=== PATIENT | male | born 1970 | race Caucasian/White ===

== ENCOUNTER 2022-09-23 16:47 | Emergency (ER) | payer OTHER, SELFPAY ==
[2022-09-23] VITALS (7 sets, daily range): BP systolic 102–127; BP diastolic 68–96; PULSE 72–86; RESP 15–26; TEMP 36.8–36.9; O2SAT 94–98; BMI 32.3
--- NOTE | 2022-09-23 16:56 | CT_ITS ---
STUDY: CT CHEST, ABDOMEN T PELVIS WITH CONTRAST REASON FOR EXAM: Male, 52 years old. abdominal pain RADIATION DOSAGE (If Supplied By Facility): CTDIvol = ( 21.50 ) mGy, DLP = ( 2205.44 ) mGycm TECHNIQUE: Transaxial imaging was performed following intravenous administration of IV 100mL Isovue-300. Individualized dose optimization techniques were used for this CT. COMPARISON: No relevant priors. FINDINGS: CHEST Mild reticulonodular interstitial thickening in both left upper and lower lobes possibly inflammatory. There is no demonstrated pleural abnormality. Normal heart and pericardium. Mild coronary artery calcification Normal mediastinum. Normal hilar regions. Normal unenhanced pulmonary arteries. Normal aorta arch and descending thoracic aorta. Dorsal spine demonstrates mild degenerative changes . ABDOMEN Small hiatal hernia is noted. Normal liver. Gallbladder not visualized status post cholecystectomy. Normal spleen. Diffusely fatty infiltrated pancreas.. Normal bilateral adrenal glands. Normal right kidney. Normal left kidney. Normal visualized stomach. Normal small intestine. Minor diverticular changes of the colon without evidence for acute diverticulitis. No evidence for acute appendicitis. Tiny pericecal nodes likely benign Minor atherosclerotic change of the aorta without evidence for aneurysm. Normal inferior vena cava. Normal retroperitoneum. Normal abdominal wall. Normal osseous structures. PELVIS Normal urinary bladder. Normal visualized small intestine. Normal visualized colon. There is no pelvic fluid. There is no pelvic lymphadenopathy or mass lesion. Normal visualized pelvic arteries. Multiple small bilateral inguinal nodes of uncertain significance. Mild stranding in the fat of the right inguinal region possibly due to prior surgery or inflammatory disease. Lumbar spine demonstrates mild spondylosis. CT/CT Chest, Abd, Pel w/Contrast IMPRESSION: Mild reticulonodular interstitial thickening in the left upper and lower lobes possibly inflammatory.. Postop change status post cholecystectomy Minor diverticular changes of the colon without evidence for acute diverticulitis. No evidence for small bowel obstruction or other acute abnormality Electronically Signed: Adarsh Chinchilla MD at 19:09 [facility] ,
--- NOTE | 2022-09-23 16:59 | ED.VIS.CHEST ---
HPI History of Present Illness Chief Complaint: Chest Pain Detail of Chief Complaint: Chest pain Informant: patient Narrative Narrative: Patient presents the emergency department complaint of chest discomfort that started around 3:15 PM. Patient states that he was just at rest sitting when he developed a pressure in the upper abdomen and across his chest that lasted about an hour. Patient attempted to make himself vomit however he did not vomit. He tells me that several days ago he had a similar episode where he had some pressure in his abdomen and he vomited 1 time and then that relieve the pressure and he felt better. Patient has complicated recent history of admission to [facility] for a hiatal hernia surgery and polyp surgery that he then subsequently developed massive pulmonary emboli that required thrombectomy and patient was placed on ECMO. Patient's been home since August 30. He has been eating and drinking normally. He has not had any blood in the stool. Patient currently states his pain is completely resolved. Patient was worried about his heart. Patient is currently taking Xarelto. Patient states that he did feel very weak and shaky and somewhat lightheaded when this was happening. [facility] Medical History (Updated 09/23/22 @ 19:[address] Maria Mayes, ) Anxiety Pulmonary embolism Home Medications rivaroxaban 20 mg tablet (Xarelto) 20 mg PO DAILY 09/23/22 [History Last Taken Unknown] Allergy/AdvReac Type Severity Reaction Status Date / Time Penicillins [PCN] Allergy Rash Verified 09/23/22 17:03 Sulfa (Sulfonamide Allergy Anaphylaxis Verified 09/23/22 17:03 Antibiotics) [sulfa drugs] Surgical History Hx of cholecystectomy Social History Smoking Status: Never smoker ROS ROS ED Review of Systems ROS Unobtainable: other Constitutional Constitutional ED: Reports lethargy; Denies chills, fever(s), sweats or weight loss Eyes Eyes: Denies blurry vision, change in vision or diplopia ENT ENT ED: Denies rhinorrhea or sore throat Cardiovascular Cardiovascular: Reports chest pain and racing heartbeat; Denies orthopnea Respiratory/Chest Respiratory/Chest: Reports dyspnea; Denies cough, dyspnea on exertion, orthopnea or sputum Gastrointestinal Gastrointestinal: Reports abdominal pain; Denies diarrhea, nausea or vomiting Genitourinary Genitourinary ED: Denies dysuria, hematuria or urinary frequency Musculoskeletal Musculoskeletal: Denies arthralgias, back pain, myalgias or neck pain Integumentary Denies abscess, Abrasions or rash Neurologic Neurologic: Reports weakness; Denies headache(s) Psychiatric Psychiatric: Denies anxiety, depression or suicidal thoughts Endocrine Endocrinology: Denies polydipsia, polyphagia or polyuria Hematologic/Lymphatic Hematologic/Lymphatic: Denies easy bleeding, easy bruising or lymphadenopathy Allergic/Immunologic Allergic/Immunologic ED: Denies mouth swelling, tongue swelling or urticaria EXAM Physical Exam Const Vital Signs: 09/23/22 16:49 09/23/22 17:03 09/23/22 17:04 Temperature 98.3 F Temperature Source Oral Pulse Rate 86 Respiratory Rate 20 H Respiratory Effort Normal Non-Labored Blood Pressure 127/96 H Blood Pressure Mean 106 Pulse Ox 98 95 Oxygen Delivery Method Room Air Room Air 09/23/22 17:05 09/23/22 18:06 09/23/22 19:04 Temperature 98.3 F Temperature Source Oral Pulse Rate 86 81 84 Respiratory Rate 18 15 26 H Respiratory Effort Blood Pressure 127/89 H 102/81 H 111/84 H Blood Pressure Mean 101 88 93 Pulse Ox 96 94 97 Oxygen Delivery Method Room Air Room Air Room Air 09/23/22 19:33 Temperature 98.4 F Temperature Source Oral Pulse Rate 74 Respiratory Rate 17 Respiratory Effort Blood Pressure 103/79 Blood Pressure Mean 87 Pulse Ox 94 Oxygen Delivery Method Room Air Positive well nourished and well developed General Appearance ED: well developed and NAD HEENT Reports TM's clear and moist mucous membranes normocephalic and atraumatic; Negative for trauma or tenderness Tympanic Membrane ED: Yes TM's clear Eyes PERRL and EOMs intact bilaterally General Eye ED: Negative for pale conjunctiva or scleral icterus Neck no lymphadenopathy, supple and no JVD General: Negative for tenderness Chest Wall inspection of chest normal and palpation of chest normal Chest: Negative for tenderness Resp normal respiratory effort and clear to auscultation bilaterally Effort and Inspection: Negative for respiratory distress or pain with movement Auscultation: Negative for rhonchi, wheezes or diminished lung sounds Cardio regular rate, regular rhythm, S1 normal heart sound, S2 normal heart sound and no murmurs Peripheral Pulses: pulses 2+ throughout GI normal to inspection, nondistended, normoactive bowel sounds, soft to palpation, non-distended and no masses GI Narrative: Mild epigastric tenderness on exam. There is no rebound, rigidity, or peritoneal signs. No mass palpated. Back/Spine no CVA tenderness and no thoracic nor lumbar tenderness Extremity normal to inspection General Extremety ED: Negative for edema General Extremity: Negative for edema Neuro oriented x3, CN's II-XII intact bilaterally, no sensory deficits noted and gait normal Sensorium / Orientation: awake, alert, oriented to person, oriented to place and oriented to time Motor Exam: strength 5/5 throughout and strength abnormal Psych mental status grossly normal Skin no rashes or lesions noted and no wounds Heart Score History: Moderately Suspicious ECG: Normal Age: >45 - <65 years Risk Factors: No Risk Factors Troponin: </= Normal Limit Score: 2 MDM MDM MDM Narrative Medical decision making narrative: Presents with chest and abdomen pain. In the differential would be cardiac etiology versus small bowel obstruction versus complication from prior esophageal hernia surgery. Patient had an IV line established and was placed on a engine monitor. EKG obtained on arrival shows sinus rhythm with a ventricular rate of 84 bpm with occasional PACs. CBC with differential was normal. Hemoglobin was 12.8. Platelet count 219. Chemistries unremarkable. Lipase was normal at 44. Troponin was normal at 7. Patient had a CT scan of the chest and abdomen with IV contrast that showed mild reticulonodular interstitial thickening of the left upper and lower lobes possibly inflammatory. Patient had postop changes status post cholecystectomy. Patient has not had minor diverticular changes of the colon without evidence for acute diverticulitis and there was no evidence of bowel obstruction. Patient had a delta troponin that also was normal. Patient received morphine and Zofran initially and he had some relief with that patient also was given simethicone which really seem to help his pain as he states that he was constantly belching and then that would relieve his pressure and his symptoms would resolve but then they would come back. Based on his symptomatology I suspect this is likely related to GI etiology and may be gas. There is no evidence of bowel obstruction or postop complications. I feel patient can be safely discharged to home and he is comfortable with plan. He does not need anything for pain for home or nausea. Lab Data Attestation: I reviewed the patient's lab results. Labs: Laboratory Results - last 24 hr 09/23/22 09/23/22 09/23/22 16:31 16:31 19:13 WBC 7.0 RBC 4.49 L Hgb 12.8 L Hct 39.7 L MCV 88.4 MCH 28.5 MCHC 32.2 RDW Std Deviation 44.4 H RDW Coeff of Charley 13.6 Plt Count 219 MPV 10.7 Immature Gran % (Auto) 0.300 Neut % (Auto) 48.6 Lymph % (Auto) 39.1 [place] % (Auto) 7.4 Eos % (Auto) 4.0 Baso % (Auto) 0.6 Absolute Neuts (auto) 3.4 Absolute Lymphs (auto) 2.73 Nucleated RBC % 0 Sodium 140 Potassium 3.5 Chloride 108 H Carbon Dioxide 27.0 Anion Gap 5 BUN 18 Creatinine 1.01 Est GFR (MDRD) Af Amer 100 Est GFR (MDRD) Non-Af 83 BUN/Creatinine Ratio 17.8 Glucose 118 H Calcium 9.4 Troponin I High Sens 7 6 Lipase 44 L Radiography Diagnostic Testing: Clinical Impression(s) from Imaging Studies Chest/Abdomen/Pelvis CT 09/23/22 16:56 IMPRESSION: Mild reticulonodular interstitial thickening in the left upper and lower lobes possibly inflammatory.. Postop change status post cholecystectomy Minor diverticular changes of the colon without evidence for acute diverticulitis. No evidence for small bowel obstruction or other acute abnormality Electronically Signed: Adarsh Chinchilla MD at 19:09 EST , Chest X-Ray 09/23/22 17:12 IMPRESSION: No acute cardiopulmonary pathology. Electronically Signed: Adarsh Chinchilla MD at 17:38 EST , EKG Initial EKG: Attestation: I personally reviewed and interpreted this EKG as follows: Comments: Sinus rhythm with a ventricular rate of 84 bpm with occasional PACs. Discharge Plan Triage Chief Complaint: Chest Pain ED Provider: Maria Mayes Dx/Rx/DC Orders Clinical Impression: Chest pain, Abdominal pain Instructions: ED Abdominal Pain Unkn Cause Fem, ED Chest Pain, Uncertain Cause Prescriptions: No Action Xarelto 20 mg Tablet 20 mg PO DAILY Rx Instructions: must administer with evening meal Primary Care Provider: Rajinder Romo Referrals: Rajinder Romo MD [Primary Care Provider] - 3-5 Days Disposition Disposition: Home, Self Care
--- NOTE | 2022-09-23 17:00 | EKG12_ITS ---
Test Reason : Blood Pressure : / mmHG Vent. Rate : 084 BPM Atrial Rate : 084 BPM P-R Int : 176 ms QRS Dur : 090 ms QT Int : 376 ms P-R-T Axes : 018 -13 010 degrees QTc Int : 444 ms Normal sinus rhythm with sinus arrhythmia Normal ECG Confirmed by JONATHAN HENDERSON, SAROJ ([id number]), order editor ANNE JUAREZ ([id number]) on 09/27/2022 11:21:36 AM Referred By: CHRIS Confirmed By:SAROJ CASTILLO MD
[2022-09-23] MEDS: 0.9% Normal Saline 1,000 ML 150 ML IV (17:12)
--- NOTE | 2022-09-23 17:12 | RAD_ITS ---
STUDY: X-RAY CHEST REASON FOR EXAM: Male, 52 years old. chest pain TECHNIQUE: AP portable COMPARISON: None. FINDINGS: There is a linear scarring in the left lower lobe. There is no focal infiltration. There is no demonstrated pleural abnormality. Normal size heart. Normal mediastinum and gucci. Normal visualized pulmonary arteries. Normal visualized aortic arch and descending thoracic aorta. Normal visualized thoracic spine. Normal visualized ribs, clavicles, and shoulders. There is no demonstrated abnormality of the visualized soft tissue structures of the upper abdomen. RAD/Chest 1 View (Portable) IMPRESSION: No acute cardiopulmonary pathology. Electronically Signed: Adarsh Chinchilla MD at 17:38 EST ,
[2022-09-23 17:25] LABS: Absolute Lymphocyte Count 2.73 X10^3/uL (0.83-4.51); Absolute Neutrophil Count 3.4 X10^3/uL (2.0-7.7); Basophil# 0.04 X10^3/uL; Basophil% 0.6 % (0-1); Eosinophil# 0.28 X10^3/uL; Hematocrit 39.7 % (40-54); Hemoglobin 12.8 g/dL (13.0-16.5); Lymphocyte # 2.73 X10^3/ul (0.83-4.51); Lymphocyte % 39.1 % (19-41); Mean Corp Hgb Conc 32.2 g/dL (32-36); Mean Corpuscular Hgb 28.5 pg (27.0-32.0); Mean Corpuscular Volume 88.4 fL (80-94); Mean Platelet Vol. 10.7 fl (6.2-12.0); Monocyte# 0.52 X10^3/uL; Monocyte% 7.4 % (0-10); NRBC Flagged by Analyzer 0 % (0-5); Neutrophil # 3.39 X10^3/uL (2.7-7.7); Neutrophil % 48.6 % (47-70); Platelet Count 219 K/mm3 (150-450); RBC Distribution Width CV 13.6 % (11.6-14.6); RBC Distribution Width SD 44.4 fl (35.1-43.9); Red Blood Count 4.49 M/mm3 (4.6-6.2)
[2022-09-23] MEDS: Ondansetron 4 MG/2 ML Vial IV (17:27)
[2022-09-23] MEDS: Morphine 4 MG/ML Syringe IV (17:28)
--- NOTE | 2022-09-23 17:33 | ED.RN ---
PT EXTREMELY NAUSEATED, HAVING PAIN TO UPPER ABD. AWARE. ORDERS RECEIVED
[2022-09-23 17:39] LABS: Anion Gap 5 (5-15); BUN 18 mg/dL (7-18); BUN/Creat Ratio 17.8 RATIO (10-20); Calcium,Total 9.4 mg/dL (8.5-10.1); Chloride 108 mmol/L (98-107); Creatinine, Serum 1.01 mg/dL (0.70-1.30); EST Glomerular Filtration Rate 83 mL/min (>60); Est Glom Filt Rate - Afr Amer 100 mL/min (>60); Glucose 118 mg/dL (74-106); Lipase 44 U/L (73-393); Potassium 3.5 mmol/L (3.5-5.1); Sodium Level 140 mmol/L (136-145); Troponin-I HS (w/2H Reflex) 7 pg/mL (3.0-78.0)
[2022-09-23 19:09] LABS: Reflex Troponin-HS? (from REC) Y
[2022-09-23 19:52] LABS: Troponin-I HS 6 pg/mL (3.0-78.0)
== END 2022-09-23 20:25 | disposition home or self-care (01) ==
PROVIDERS: Emergency Provider Emergency Medicine; PCP Family Medicine; Visit Provider Emergency Medicine
DX: R07.9 Chest pain, unspecified (principal); R10.9 Unspecified abdominal pain; Z79.01 Long term (current) use of anticoagulants; Z86.711 Personal history of pulmonary embolism
CPT/HCPCS: 71045; 71260; 74177; 80048; 83690; 84484; 85025; 93005; 96374; 96375; 99285; J7030; Q9967; A4216; J2405

== ENCOUNTER 2022-09-26 11:37 | Emergency (ER) | payer OTHER, SELFPAY ==
[2022-09-26 11:37] VITALS: BP 129/93; PULSE 72; RESP 18; TEMP 36.4; O2SAT 97; BMI 32.5
--- NOTE | 2022-09-26 12:04 | EKG12_ITS ---
Test Reason : WEAKNESS Blood Pressure : / mmHG Vent. Rate : 066 BPM Atrial Rate : 066 BPM P-R Int : 188 ms QRS Dur : 080 ms QT Int : 394 ms P-R-T Axes : 046 005 026 degrees QTc Int : 413 ms Normal sinus rhythm Inferior infarct , age undetermined Abnormal ECG Confirmed by JONATHAN HENDERSON, SAROJ ([id number]), business editor ANNE JUAREZ ([id number]) on 09/28/2022 9:36:44 AM Referred By: Confirmed By:SAROJ CASTILLO MD
--- NOTE | 2022-09-26 12:13 | EDS_ITS ---
HPI <MURRAY Patel - Last Filed: 09/26/22 14:08> History of Present Illness Chief Complaint: Weakness Narrative Narrative: Patient is a 52-year-old male with history of hilar hernia surgery, DVT, pulmonary embolus on Xarelto who in August 2022, had a severe pulmonary embolus, was intubated, and had to have surgery. Patient was seen here 3 days ago, for generalized malaise, shoulder pain, belly pain. Patient had a full work-up including a chest abdomen and pelvis CT scan, as well as multiple laboratory studies, this was a negative exam, patient was sent home. Patient states that the fatigue has continued. He has pain in his shoulders, he has in termittent belly pain, he also has pain in the the left leg. Patient does have a follow-up appointment tomorrow at [facility] however patient was concerned today. He denies any specific chest pain or shortness of breath. Denies any fever or chills he is in the room with his . Patient has not missed any doses of his Xarelto. PFSH <MURRAY Patel - Last Filed: 09/26/22 14:08> [facility] Medical History (Updated 09/26/22 @ 14:08 by MURRAY Patel) Anxiety Pulmonary embolism Home Medications rivaroxaban 20 mg tablet (Xarelto) 20 mg PO DAILY 09/23/22 [History Last Taken Unknown] Allergy/AdvReac Type Severity Reaction Status Date / Time Penicillins [PCN] Allergy Rash Verified 09/26/22 11:47 Sulfa (Sulfonamide Allergy Anaphylaxis Verified 09/26/22 11:47 Antibiotics) [sulfa drugs] Surgical History Hx of cholecystectomy Social History Smoking Status: Never smoker ROS <MURRAY Patel - Last Filed: 09/26/22 14:08> ROS ED ROS Narrative Constitutional: Negative for fever, chills, weight loss,. Positive generalized feeling of fatigue, weakness Eyes: Negative for vision loss, vision change, double vision ENT: Negative for any sore throat, ear pain, congestion Cardiovascular: Negative for any chest pain, tightness, palpitations Respiratory: Negative for any cough, sputum production, hemoptysis, dyspnea, dyspnea on exertion, orthopnea Gastrointestinal: Negative for any nausea, vomiting, diarrhea, constipation, blood in stool, blood in vomit. Positive for intermittent abdominal pain : Negative for any urinary frequency, dysuria, retention, blood in urine Muscle skeletal: Negative for any muscle joint pain, stiffness, myalgias, arthralgias, neck pain, back pain. Positive left leg pain Neurological: Negative for any headache, syncope, numbness or tingling, dizziness Skin: Negative for any rashes, lumps, itching, abrasions, lacerations Psychiatric: Negative for any depression, anxiety, stress, suicidal ideation, homicidal ideation Hematologic: Negative for any easy bruising, excessive bruising, easy bleeding Allergies: Negative for any eczema, hives, rash EXAM <MURRAY Patel - Last Filed: 09/26/22 14:08> Physical Exam Narrative Exam Narrative: Vital signs reviewed. Patient is in no respiratory distress. Patient's vital signs are stable. HEET: Head normocephalic atraumatic, TMs clear bilaterally. Posterior pharynx is clear, moist mucous membranes. Nares clear bilaterally. Neck: Supple with no lymphadenopathy or tenderness. No signs of meningismus, negative jolt sign. Cardiac: Regular rate and rhythm no murmurs gallops or rubs, equal peripheral pulses bilaterally. Respiratory: Lungs clear to auscultation bilaterally. No chest tenderness. Abdomen: Soft, nontender, nondistended. No abdominal bruit or pulsatile masses. No hepatosplenomegaly Extremities: No peripheral edema, no signs of gross trauma or deformity. Active full range of motion of all extremities. No neurological focal deficit. +2 pedal pulse. Patient has no redness, edema to bilateral lower legs. Neuro: Cranial nerves II through XII intact, no focal neurological deficits. Skin: Clean dry and intact with no rash, purpura, petechiae, vesicles or pustules. Backs/flank: No CVA tenderness, no midline spinal tenderness, no deformity. Psych: Normal mood and affect. No SI, HI or acute psychosis. Const Vital Signs: 09/26/22 11:37 09/26/22 11:48 09/26/22 13:57 Temperature 97.6 F L Temperature Source Temporal Pulse Rate 72 66 Respiratory Rate 18 13 Respiratory Effort Normal Non-Labored Respiratory Pattern Normal Blood Pressure 129/93 H 112/81 H Blood Pressure Mean 105 91 Pulse Ox 97 96 Oxygen Delivery Method Room Air Room Air Positive well nourished and well developed General Appearance ED: well developed <Dr. Jewel Martinez MD - Last Filed: 09/26/22 13:03> Physical Exam Const Vital Signs: 09/26/22 11:37 09/26/22 11:48 09/26/22 13:57 Temperature 97.6 F L Temperature Source Temporal Pulse Rate 72 66 Respiratory Rate 18 13 Respiratory Effort Normal Non-Labored Respiratory Pattern Normal Blood Pressure 129/93 H 112/81 H Blood Pressure Mean 105 91 Pulse Ox 97 96 Oxygen Delivery Method Room Air Room Air MDM <MURRAY Patel - Last Filed: 09/26/22 14:08> MDM Lab Data Labs: Laboratory Results - last 24 hr 09/26/22 09/26/22 09/26/22 12:20 12:20 12:35 WBC 7.7 RBC 4.52 L Hgb 12.8 L Hct 39.4 L MCV 87.2 MCH 28.3 MCHC 32.5 RDW Std Deviation 41.9 RDW Coeff of Charley 13.1 Plt Count 199 MPV 10.0 Immature Gran % (Auto) 0.400 Neut % (Auto) 63.1 Lymph % (Auto) 27.8 [place] % (Auto) 6.9 Eos % (Auto) 1.4 Baso % (Auto) 0.4 Absolute Neuts (auto) 4.8 Absolute Lymphs (auto) 2.13 Nucleated RBC % 0 Sodium 139 Potassium 3.9 Chloride 107 Carbon Dioxide 25.0 Anion Gap 7 BUN 11 Creatinine 0.93 Estim Creat Clear Calc 100.09 Est GFR (MDRD) Af Amer 110 Est GFR (MDRD) Non-Af 91 BUN/Creatinine Ratio 11.9 Glucose 99 Calcium 9.5 Total Bilirubin 0.50 AST 16 ALT 27 Alkaline Phosphatase 109 Troponin I High Sens 5 Total Protein 7.5 Albumin 3.4 Globulin 4.1 Albumin/Globulin Ratio 0.8 L Lipase 37 L Urine Color Yellow Urine Clarity Clear Urine pH 6.0 Ur Specific [place] 1.015 Urine Protein Negative Urine Glucose (UA) Normal Urine Ketones Negative Urine Occult Blood Negative Urine Nitrite Negative Urine Bilirubin Negative Urine Urobilinogen Normal Ur Leukocyte Esterase Negative Urine RBC 0 SEEN Urine WBC 0 SEEN Ur Squamous Epith Cells 0 SEEN Urine Bacteria 0 SEEN Urine Mucus 0 SEEN Radiography Diagnostic Testing: Clinical Impression(s) from Imaging Studies Chest X-Ray 09/26/22 12:46 IMPRESSION: Normal x-ray examination of the chest. Electronically Signed: Alban Villalobos MD at 13:12 EST , Treatment and Re-Evaluation Narrative: Seen and evaluated independently and in conjunction with nurse practitioner. Agree with notes above unless documented otherwise. Patient not feeling well, little tremulous, he was seen here 4 days ago for similar symptoms and had negative CT chest, abdomen, pelvis for anything acute, although mild reticulonodular interstitial thickening of the left upper and lower lobes was noted to be possibly inflammatory. That old record was reviewed. Patient states since then he has developed a mild cough, and a speck of blood and some sputum that he shows me here in the emergency department. He is anticoagulated. He is also developed some mild soreness in his left calf, he has had edema in that leg since he was diagnosed with a DVT and PE in August, the edema has been no worse, but it has been weeks since he has had the discomfort in his calf. There is no palpable cord there. There are some mild edema in his left lower extremity. His lungs are clear to auscultation throughout, he is in no respiratory distress, speaking in full sentences, and his vital signs are normal. He is on Xarelto. Reviewed labs and urinalysis, 2 view chest x-ray my interpretation is normal. For these reasons I do not think he needs to be on antibiotics or anything else acutely right now. No indication to repeat ultrasound of his left lower extremity since he is anticoagulated and the edema is no worse, and he is in agreement with that. He is reassured, advised to follow-up with his doctor he is comfortable with that plan. All radiologic examinations were read, reviewed by the emergency department attending. From these reads, a plan of care will be put in place. Patient appears well, patient appears nontoxic, vital signs are stable. Patient presents to the emergency department with complaints of generalized weakness, pain in his shoulder blades, ongoing abdominal pain. He also complains of intermittent left leg pain. Patient had a full work-up 3 days ago. We did repeat basic laboratory values which were grossly unremarkable. Patient did receive a GI cocktail which states did help his symptoms of his belly as well as his shoulder blade pain. Patient EKG, troponin were negative. There is no evidence of suspect any ACS, [place]. Patient did receive a two-view chest x-ray showed no acute cardiopulmonary process. Patient on reevaluation was acting appropriate. His urinalysis was negative. At this time, not believe there is any evidence to suspect any pneumonia, ACS, [place], pulmonary embolus, DVT. Patient feels well, he does have a close follow-up appointment with [facility] tomorrow which he will continue to follow-up with. Both him and his were given discharge instructions. Return precautions. They are stable for discharge <Dr. Jewel Martinez MD - Last Filed: 09/26/22 13:03> [facility] Lab Data Attestation: I reviewed the patient's lab results. Labs: Laboratory Results - last 24 hr 09/26/22 09/26/22 09/26/22 12:20 12:20 12:35 WBC 7.7 RBC 4.52 L Hgb 12.8 L Hct 39.4 L MCV 87.2 MCH 28.3 MCHC 32.5 RDW Std Deviation 41.9 RDW Coeff of Charley 13.1 Plt Count 199 MPV 10.0 Immature Gran % (Auto) 0.400 Neut % (Auto) 63.1 Lymph % (Auto) 27.8 [place] % (Auto) 6.9 Eos % (Auto) 1.4 Baso % (Auto) 0.4 Absolute Neuts (auto) 4.8 Absolute Lymphs (auto) 2.13 Nucleated RBC % 0 Sodium 139 Potassium 3.9 Chloride 107 Carbon Dioxide 25.0 Anion Gap 7 BUN 11 Creatinine 0.93 Estim Creat Clear Calc 100.09 Est GFR (MDRD) Af Amer 110 Est GFR (MDRD) Non-Af 91 BUN/Creatinine Ratio 11.9 Glucose 99 Calcium 9.5 Total Bilirubin 0.50 AST 16 ALT 27 Alkaline Phosphatase 109 Troponin I High Sens 5 Total Protein 7.5 Albumin 3.4 Globulin 4.1 Albumin/Globulin Ratio 0.8 L Lipase 37 L Urine Color Yellow Urine Clarity Clear Urine pH 6.0 Ur Specific [place] 1.015 Urine Protein Negative Urine Glucose (UA) Normal Urine Ketones Negative Urine Occult Blood Negative Urine Nitrite Negative Urine Bilirubin Negative Urine Urobilinogen Normal Ur Leukocyte Esterase Negative Urine RBC 0 SEEN Urine WBC 0 SEEN Ur Squamous Epith Cells 0 SEEN Urine Bacteria 0 SEEN Urine Mucus 0 SEEN Radiography Diagnostic Testing: Clinical Impression(s) from Imaging Studies Chest X-Ray 09/26/22 12:46 IMPRESSION: Normal x-ray examination of the chest. Electronically Signed: Alban Villalobos MD at 13:12 EST Reading Location ID and State: [facility] / [place] , Service support , Treatment and Re-Evaluation Narrative: Seen and evaluated independently and in conjunction with nurse practitioner. Agree with notes above unless documented otherwise. Patient not feeling well, little tremulous, he was seen here 4 days ago for similar symptoms and had negative CT chest, abdomen, pelvis for anything acute, although mild reticulonodular interstitial thickening of the left upper and lower lobes was noted to be possibly inflammatory. That old record was reviewed. Patient states since then he has developed a mild cough, and a speck of blood and some sputum that he shows me here in the emergency department. He is anticoagulated. He is also developed some mild soreness in his left calf, he has had edema in that leg since he was diagnosed with a DVT and PE in August, the edema has been no worse, but it has been weeks since he has had the discomfort in his calf. There is no palpable cord there. There are some mild edema in his left lower extremity. His lungs are clear to auscultation throughout, he is in no respiratory distress, speaking in full sentences, and his vital signs are normal. He is on Xarelto. Reviewed labs and urinalysis, 2 view chest x-ray my interpretation is normal. For these reasons I do not think he needs to be on antibiotics or anything else acutely right now. No indication to repeat ultrasound of his left lower extremity since he is anticoagulated and the edema is no worse, and he is in agreement with that. He is reassured, advised to follow-up with his doctor he is comfortable with that plan. Discharge Plan Triage Chief Complaint: Weakness ED Midlevel Provider: Olman Leal ED Provider: Jewel Martinez Dx/Rx/DC Orders Clinical Impression: Weakness, Gastroesophageal reflux disease Instructions: ED GERD (Adult), ED Weakness (Uncertain Cause) Prescriptions: No Action Xarelto 20 mg Tablet 20 mg PO DAILY Rx Instructions: must administer with evening meal Primary Care Provider: Rajinder Romo Referrals: Rajinder Romo MD [Primary Care Provider] - Activity Restrictions/Additional Instructions: Please continue your anticoagulation medicine, please follow-up tomorrow with the [facility] Disposition Disposition: Home, Self Care
[2022-09-26 12:26] LABS: Absolute Lymphocyte Count 2.13 X10^3/uL (0.83-4.51); Absolute Neutrophil Count 4.8 X10^3/uL (2.0-7.7); Basophil# 0.03 X10^3/uL; Basophil% 0.4 % (0-1); Eosinophil# 0.11 X10^3/uL; Eosinophils% 1.4 % (0-5); Hematocrit 39.4 % (40-54); Hemoglobin 12.8 g/dL (13.0-16.5); Lymphocyte # 2.13 X10^3/ul (0.83-4.51); Lymphocyte % 27.8 % (19-41); Mean Corp Hgb Conc 32.5 g/dL (32-36); Mean Corpuscular Hgb 28.3 pg (27.0-32.0); Mean Corpuscular Volume 87.2 fL (80-94); Monocyte# 0.53 X10^3/uL; Monocyte% 6.9 % (0-10); NRBC Flagged by Analyzer 0 % (0-5); Neutrophil # 4.83 X10^3/uL (2.7-7.7); Neutrophil % 63.1 % (47-70); Platelet Count 199 K/mm3 (150-450); RBC Distribution Width CV 13.1 % (11.6-14.6); RBC Distribution Width SD 41.9 fl (35.1-43.9); Red Blood Count 4.52 M/mm3 (4.6-6.2); White Blood Count 7.7 K/mm3 (4.4-11.0)
[2022-09-26] MEDS: Mag Hydrox/Al Hydrox/Simeth 30 ML UDC PO (12:26)
[2022-09-26 12:40] LABS: Bacteria 0 SEEN /hpf (None Seen); Mucous, Urine 0 SEEN /hpf (<or=2+); Red Blood Cells-Urine 0 SEEN /hpf (0-5); Squamous Epithelial Cells - UA 0 SEEN /hpf (0-5); White Blood Cells 0 SEEN /hpf (0-5)
--- NOTE | 2022-09-26 12:46 | RAD_ITS ---
STUDY: X-RAY CHEST REASON FOR EXAM: Male, 52 years old. Fever and cough TECHNIQUE: PA and lateral views of the chest. COMPARISON: 09/23/2022 FINDINGS: EKG leads overlie the chest The lungs are clear and expanded. There is no demonstrated pleural abnormality. Normal size heart. Normal mediastinum and gucci. Normal visualized pulmonary arteries. Normal visualized aortic arch and descending thoracic aorta. Normal visualized thoracic spine. Normal visualized ribs, clavicles, and shoulders. There is no demonstrated abnormality of the visualized soft tissue structures of the upper abdomen. RAD/Chest PA and Lateral IMPRESSION: Normal x-ray examination of the chest. Electronically Signed: Alban Villalobos MD at 13:12 EST ,
[2022-09-26 12:47] LABS: ALB/GLOB Ratio 0.8 RATIO (0.9-2.4); AST(SGOT) 16 U/L (15-37); Alanine Aminotransfer ALT/SGPT 27 U/L (16-61); Albumin, Serum 3.4 g/dL (3.2-5.0); Alkaline Phosphatase 109 U/L (45-117); Anion Gap 7 (5-15); BUN 11 mg/dL (7-18); BUN/Creat Ratio 11.9 RATIO (10-20); Calcium,Total 9.5 mg/dL (8.5-10.1); Chloride 107 mmol/L (98-107); Creatinine, Serum 0.93 mg/dL (0.70-1.30); EST Glomerular Filtration Rate 91 mL/min (>60); Est Glom Filt Rate - Afr Amer 110 mL/min (>60); Estimated Creatinine Clearance 100.09 ml/min; Globulin 4.1 g/dL (2.2-4.2); Glucose 99 mg/dL (74-106); Lipase 37 U/L (73-393); Potassium 3.9 mmol/L (3.5-5.1); Protein, Total 7.5 g/dL (6.4-8.2); Sodium Level 139 mmol/L (136-145); Troponin-I HS 5 pg/mL (3.0-78.0)
[2022-09-26 12:50] LABS: Color, Urine Yellow (Yellow); Glucose, Dipstick Normal (Normal); Ketone-Dipstick Negative (Negative); Leukocyte Esterase-Dipstick Negative /ul (Negative); Nitrite-Dipstick Negative (Negative); Occult Blood-Urine Negative /ul (Negative); Protein-Dipstick Negative (Negative); Specific Gravity, Urine 1.015 (1.002-1.030); Urine Bilirubin Dipstick Negative (Negative); Urine Clarity Clear (Clear); Urine Urobilinogen Normal (Normal)
[2022-09-26 13:57] VITALS: BP 112/81; PULSE 66; RESP 13; O2SAT 96
== END 2022-09-26 14:16 | disposition home or self-care (01) ==
PROVIDERS: Nurse Practitioner; Emergency Provider Emergency Medicine; PCP Family Medicine; Visit Provider Emergency Medicine
DX: R53.1 Weakness (principal); K21.9 Gastro-esophageal reflux disease without esophagitis; Z79.01 Long term (current) use of anticoagulants; Z86.718 Personal history of other venous thrombosis and embolism; Z86.711 Personal history of pulmonary embolism
CPT/HCPCS: 71046; 80053; 81001; 83690; 84484; 85025; 87428; 93005; 99284; A4216

== ENCOUNTER 2023-06-15 16:36 | Emergency (ER) | payer OTHER, SELFPAY ==
[2023-06-15] VITALS (9 sets, daily range): BP systolic 116–139; BP diastolic 65–102; PULSE 60–76; RESP 12–18; TEMP 35.8; O2SAT 94–100; BMI 36.1
--- NOTE | 2023-06-15 19:08 | CT_ITS ---
STUDY: CTA CHEST REASON FOR EXAM: Male, 52 years old. SOARES, high pretest prob for PE RADIATION DOSAGE (If Supplied By Facility): CTDIvol = ( 13.76 ) mGy, DLP = ( 542.81 ) mGycm TECHNIQUE: The examination was performed with the intravenous administration of IV 100mL Isovue-370. Post-processing of the angiographic images was performed, with multiplanar reformation and 3D reconstruction. Individualized dose optimization techniques were used for this CT. COMPARISON: September 23, 2022 FINDINGS: Normal enhancement of the main pulmonary artery and right and left pulmonary arteries. Normal enhancement of the bilateral peripheral pulmonary arteries. There is no demonstrated pulmonary embolism. Minor atherosclerotic change of the aorta without evidence for aneurysm. There is no demonstrated aortic dissection. Normal heart and pericardium. Mild coronary artery calcification. Normal mediastinum. Normal hilar regions. Normal visualized trachea and bronchi. The lungs are well expanded. Minor interstitial thickening in the left upper lobe Mild interstitial thickening at the lung bases and dependent atelectasis within the lower lobes. Normal pleura. Normal chest wall structures. Dorsal spine demonstrates mild degenerative changes. Small hiatal hernia.. Status post cholecystectomy. Improved aeration in left lower lobe since previous study.] Right basilar atelectasis is new finding CT/CTA Chest W/WO Contrast IMPRESSION: ASHD without evidence for aortic aneurysm periaortic leak or dissection. Mild chronic interstitial thickening in left upper lobe improved since previous study Minor atelectasis and interstitial thickening within the dependent portion of the lungs which is new on the right since previous study. No evidence for pulmonary embolus Electronically Signed: Adarsh Chinchilla MD at 20:08 EST ,
--- NOTE | 2023-06-15 19:08 | EKG12_ITS ---
Test Reason : SOB Blood Pressure : / mmHG Vent. Rate : 071 BPM Atrial Rate : 071 BPM P-R Int : 174 ms QRS Dur : 088 ms QT Int : 384 ms P-R-T Axes : 039 005 024 degrees QTc Int : 417 ms Normal sinus rhythm Possible Inferior infarct , age undetermined Abnormal ECG Confirmed by JONATHAN HENDERSON, SAROJ ([id number]), mapping editor ANNE JUAREZ ([id number]) on 06/22/2023 11:47:15 AM Referred By: SANNA/NEDA Confirmed By:SAROJ CASTILLO MD
[2023-06-15 19:24] LABS: Absolute Lymphocyte Count 1.67 X10^3/uL (0.83-4.51); Absolute Neutrophil Count 4.1 X10^3/uL (2.0-7.7); Basophil# 0.04 X10^3/uL; Basophil% 0.6 % (0-1); Eosinophil# 0.23 X10^3/uL; Eosinophils% 3.4 % (0-5); Hematocrit 47.3 % (40-54); Hemoglobin 15.8 g/dL (13.0-16.5); Lymphocyte # 1.67 X10^3/ul (0.83-4.51); Lymphocyte % 24.6 % (19-41); Mean Corp Hgb Conc 33.4 g/dL (32-36); Mean Corpuscular Hgb 28.6 pg (27.0-32.0); Mean Corpuscular Volume 85.7 fL (80-94); Mean Platelet Vol. 10.2 fl (6.2-12.0); Monocyte# 0.69 X10^3/uL; Monocyte% 10.2 % (0-10); NRBC Flagged by Analyzer 0 % (0-5); Neutrophil # 4.14 X10^3/uL (2.7-7.7); Neutrophil % 60.9 % (47-70); Platelet Count 211 K/mm3 (150-450); RBC Distribution Width CV 13.2 % (11.6-14.6); RBC Distribution Width SD 41.1 fl (35.1-43.9); Red Blood Count 5.52 M/mm3 (4.6-6.2); White Blood Count 6.8 K/mm3 (4.4-11.0)
[2023-06-15 19:43] LABS: BNP,B-Type NATRIURETIC PEPTIDE 3.1 pg/mL (0-100)
[2023-06-15 19:53] LABS: Anion Gap 2 (5-15); BUN 19 mg/dL (7-18); BUN/Creat Ratio 18.3 RATIO (10-20); Calcium,Total 9.4 mg/dL (8.5-10.1); Chloride 107 mmol/L (98-107); Creatinine, Serum 1.04 mg/dL (0.70-1.30); EST Glomerular Filtration Rate 80 mL/min (>60); Est Glom Filt Rate - Afr Amer 97 mL/min (>60); Glucose 85 mg/dL (74-106); Potassium 3.8 mmol/L (3.5-5.1); Sodium Level 138 mmol/L (136-145); Thyroid Stim Hormone (TSH) 5.06 uIU/mL (0.358-3.74); Troponin-I HS 6 pg/mL (3.0-78.0)
--- NOTE | 2023-06-15 21:41 | ED.VIS.DYS ---
HPI History of Present Illness Chief Complaint: Shortness of Breath Informant: patient Narrative Narrative: Patient is a 52-year-old male with significant past medical history of pulmonary emboli that actually ended up requiring ECMO a 1 year ago. He is presenting with increased fatigue and exercise intolerance. States for the past 3 months or so he had intermittent episodes of fatigue with exertion however over the past few days its been much worse. He states on Tuesday, 3 days ago he was walking about a mile and a half when he started to feel fatigued, had an upset stomach and feel weak/dizzy. He is continue to feel fatigued for the past 3 days intermittently. Normally if he exerts himself he will feel tired but with rest will go back to normal. He notes he is also had some intermittent chest discomfort and sometimes with exertion and sometimes at rest. Does report he has a history of hiatal hernia is not sure if some of this is associate with the hernia. He is no longer on anticoagulation and is concerned that he might have another blood clot. He has some chronic swelling of his legs but has no change in this. Denies any fever or chills. Denies any urinary symptoms. No other complaints at this time. [facility] Medical History Anxiety Pulmonary embolism Home Medications aspirin 81 mg tablet,delayed release (Adult Aspirin Regimen) 81 mg PO DAILY heart health 06/15/23 [History Last Taken 06/15/23 07:00] Allergy/AdvReac Type Severity Reaction Status Date / Time Penicillins [PCN] Allergy Rash Verified 06/15/23 16:38 Sulfa (Sulfonamide Allergy Anaphylaxis Verified 06/15/23 16:38 Antibiotics) [sulfa drugs] Surgical History Hx of cholecystectomy Social History Smoking Status: Never smoker ROS ROS ED Constitutional Constitutional ED: Reports other Details: Fatigue ; Denies chills or fever(s) Cardiovascular Cardiovascular: Reports chest pain; Denies palpitations Respiratory/Chest Respiratory/Chest: Reports dyspnea and dyspnea on exertion; Denies cough Gastrointestinal Gastrointestinal: Reports nausea; Denies abdominal pain or vomiting Genitourinary Genitourinary ED: Denies dysuria Musculoskeletal Musculoskeletal: Denies arthralgias or myalgias Integumentary Denies rash Neurologic Neurologic: Reports weakness; Denies headache(s) or paresthesias Hematologic/Lymphatic Hematologic/Lymphatic: Denies easy bleeding or easy bruising EXAM Physical Exam Const Vital Signs: 06/15/23 16:38 06/15/23 16:36 06/15/23 17:07 Temperature 96.5 F L Temperature Source Temporal Pulse Rate 76 65 Respiratory Rate 18 12 Respiratory Effort Normal Respiratory Depth Respiratory Pattern Irregular Blood Pressure 137/102 H 132/88 H Blood Pressure Mean 113 102 Pulse Ox 97 94 Oxygen Delivery Method Room Air Room Air 06/15/23 17:07 06/15/23 17:36 06/15/23 18:36 Temperature Temperature Source Pulse Rate 63 60 Respiratory Rate 12 13 Respiratory Effort Short of Breath Respiratory Depth Normal Respiratory Pattern Blood Pressure 131/99 H 139/94 H Blood Pressure Mean 109 109 Pulse Ox 99 100 Oxygen Delivery Method Room Air Room Air 06/15/23 19:08 06/15/23 19:00 06/15/23 20:00 Temperature Temperature Source Pulse Rate 61 65 Respiratory Rate 18 14 Respiratory Effort Respiratory Depth Respiratory Pattern Blood Pressure 130/65 H 133/91 H Blood Pressure Mean 86 105 Pulse Ox 100 95 Oxygen Delivery Method Room Air Room Air Room Air 06/15/23 21:00 06/15/23 21:45 Temperature Temperature Source Pulse Rate 65 65 Respiratory Rate 16 16 Respiratory Effort Respiratory Depth Respiratory Pattern Blood Pressure 116/92 H 116/92 H Blood Pressure Mean 100 100 Pulse Ox 97 97 Oxygen Delivery Method Positive well nourished and well developed General Appearance ED: well developed and NAD HEENT Reports moist mucous membranes Eyes PERRL and EOMs intact bilaterally Neck supple and no JVD Resp normal respiratory effort and clear to auscultation bilaterally Auscultation: Negative for wheezes or diminished lung sounds Cardio regular rate, regular rhythm and no murmurs GI non-tender and non-distended Palpation: soft; Negative for guarding Extremity normal to inspection General Extremety ED: Negative for edema or tenderness General Extremity: Negative for edema Neuro oriented x3 Sensorium / Orientation: alert Motor Exam: Negative for general weakness Psych mental status grossly normal Skin no wounds Rashes: no rashes MDM MDM MDM Narrative Medical decision making narrative: Patient is evaluated for intermittent but worsening of fatigue, exercise intolerance, chest discomfort and sounds like some shortness of breath. Is mainly concerned that he might have another blood clot given his history. EKG shows normal sinus rhythm with no acute ischemic changes. Troponin is 6. Given his symptoms going on for days I feel that this effectively rules out ACS. BNP is normal at 3.1 and he does not appear fluid overloaded clinically. CBC and BMP largely normal. No signs of acute anemia and no leukocytosis suggestive of an acute infection causing his symptoms. His TSH is minimally elevated at 5.06 which patient was informed of and counseled for outpatient follow-up but I do not think that explains his symptoms. CT of the chest some findings consistent with atherosclerotic heart disease as well as mild chronic incisional thickening of the left upper lobe which is improved and some minor ectasis and interstitial thickening within the dependent portion of the lung which is new on the right side. Patient informed of findings. Will be discharged home for outpatient follow-up. He verbalized agreement understands this. Discharged home in stable condition. Lab Data Attestation: I reviewed the patient's lab results. Labs: Laboratory Results - last 24 hr 06/15/23 17:10 WBC 6.8 RBC 5.52 Hgb 15.8 Hct 47.3 MCV 85.7 MCH 28.6 MCHC 33.4 RDW Std Deviation 41.1 RDW Coeff of Charley 13.2 Plt Count 211 MPV 10.2 Immature Gran % (Auto) 0.300 Neut % (Auto) 60.9 Lymph % (Auto) 24.6 Meagher % (Auto) 10.2 H Eos % (Auto) 3.4 Baso % (Auto) 0.6 Absolute Neuts (auto) 4.1 Absolute Lymphs (auto) 1.67 Nucleated RBC % 0 Sodium 138 Potassium 3.8 Chloride 107 Carbon Dioxide 29.0 Anion Gap 2 L BUN 19 H Creatinine 1.04 Estim Creat Clear Calc 89.50 Est GFR (MDRD) Af Amer 97 Est GFR (MDRD) Non-Af 80 BUN/Creatinine Ratio 18.3 Glucose 85 Calcium 9.4 Troponin I High Sens 6 B-Natriuretic Peptide 3.1 TSH 5.06 H Radiography Diagnostic Testing: Clinical Impression(s) from Imaging Studies Chest CTA 06/15/23 19:08 IMPRESSION: ASHD without evidence for aortic aneurysm periaortic leak or dissection. Mild chronic interstitial thickening in left upper lobe improved since previous study Minor atelectasis and interstitial thickening within the dependent portion of the lungs which is new on the right since previous study. No evidence for pulmonary embolus Electronically Signed: Adarsh Chinchilla MD at 20:08 EST Reading Location ID and State: [address] [place] [address] Tel , Service support , Rhythm Strip Rhythm Strip: Sinus Rhythm Rate: 71 Ectopy: None EKG Initial EKG: Attestation: I personally reviewed and interpreted this EKG as follows: Interpretation: Sinus Rhythm Comments: Normal sinus rhythm rate of 71 bpm Normal axis Normal intervals Normal ST segments Prior EKG tracings: available for review Prior: Unchanged Differential Diagnosis Chest pain/SOB: pulmonary embolism Reason(s) PE less likely: Positive for not tachycardic, not hypoxic and Other (CTA negative for pulmonary emboli), ACS ACS: Positive for no evidence of ACS based on cardiac biomarkers and EKG without ischemia, pneumonia Reason(s) pneumonia less likely: Positive for no infiltrate on CXR, no elevation in WBC count, no noted fever and symptoms not consistent with acute infection and CHF Reason(s) CHF less likely: Positive for no significant peripheral edema, no orthopnea, no evidence of fluid overload on CXR and BtNP not significantly elevated over normal/baseline Discharge Plan Triage Chief Complaint: Shortness of Breath ED Provider: Deidre Drew Dx/Rx/DC Orders Clinical Impression: Fatigue, Dyspnea Instructions: ED Dyspnea Prescriptions: No Action aspirin [Adult Aspirin Regimen] 81 mg tablet,delayed release (DR/EC) 81 mg PO DAILY Primary Care Provider: Rajinder Romo Referrals: Rajinder Romo MD [Primary Care Provider] - Activity Restrictions/Additional Instructions: Your blood work does not show signs of acute heart stress, heart attack or blood clot in the lungs. You have a small hiatal hernia on your CT but nothing more severe. You do have some chronic findings as well as some signs of atherosclerotic heart disease. Please follow-up outpatient with your primary care doctor and follow-up for your ultrasound of your heart (echocardiogram) as previously scheduled and discussed. Disposition Disposition: Home, Self Care Discharge Date/Time: 06/15/23 22:01
== END 2023-06-15 22:01 | disposition home or self-care (01) ==
PROVIDERS: Emergency Provider Emergency Medicine; PCP Family Medicine; Visit Provider Emergency Medicine
DX: R53.83 Other fatigue (principal); R06.00 Dyspnea, unspecified; Z79.82 Long term (current) use of aspirin; Z86.711 Personal history of pulmonary embolism
CPT/HCPCS: 71275; 80048; 83880; 84443; 84484; 85025; 93005; 99285; Q9967; A4216